=== PATIENT | male | born 1980 | race Caucasian/White ===

== ENCOUNTER 2019-02-27 13:27 | Emergency (ER) | payer MEDICAID, OTHER ==
[~2019-02-27] VITALS: Ht 180.3 cm; Wt 56.7 kg
[2019-02-27 13:35] VITALS: BP 127/82
[2019-03-02] MEDS ORDERED: LEVE500T53 PO (00:29)
[2019-03-02] MEDS ORDERED: ALPR2TAB2 PO (00:29)
[2019-03-02] MEDS ORDERED: GABA600T7 PO (00:29)
[2019-03-02] MEDS ORDERED: OXYC-432 PO (00:29)
== END 2019-02-27 14:20 | disposition home or self-care (01) ==
LOC: ED 14:10
DX: F41.9 Anxiety disorder, unspecified (principal); Z76.0 Encounter for issue of repeat prescription; F41.1 Generalized anxiety disorder; G40.909 Epilepsy, unspecified, not intractable, without status epilepticus; F43.10 Post-traumatic stress disorder, unspecified
CPT/HCPCS: 99283

== ENCOUNTER 2019-03-02 00:06 | Emergency (ER) | payer MEDICAID ==
[~2019-03-02] VITALS: Ht 180.3 cm; Wt 57.0 kg
[2019-03-02 00:14] VITALS: BP 133/88
== END 2019-03-02 01:32 | disposition home or self-care (01) ==
LOC: ED 00:53
DX: M25.462 Effusion, left knee (principal); G89.29 Other chronic pain; M54.5 Low back pain; M54.6 Pain in thoracic spine; F17.210 Nicotine dependence, cigarettes, uncomplicated; Z72.89 Other problems related to lifestyle; Z91.14 Patient's other noncompliance with medication regimen; Z75.9 Unspecified problem related to medical facilities and other health care
CPT/HCPCS: 99283

== ENCOUNTER 2019-03-30 16:17 | Emergency (ER) | payer MEDICAID ==
[~2019-03-30] VITALS: Ht 180.3 cm; Wt 58.2 kg
[2019-03-30 19:56] VITALS: BP 116/69
== END 2019-03-30 20:03 | disposition home or self-care (01) ==
LOC: ED 16:51
DX: L03.114 Cellulitis of left upper limb (principal); G40.909 Epilepsy, unspecified, not intractable, without status epilepticus; Z72.9 Problem related to lifestyle, unspecified; F43.10 Post-traumatic stress disorder, unspecified; T63.301A Toxic effect of unspecified spider venom, accidental (unintentional), initial encounter; Y92.89 Other specified places as the place of occurrence of the external cause
CPT/HCPCS: 10061; 71045; 96365; 96366; 99152; 99285; J0696; J3010; J7030; 10060

== ENCOUNTER 2019-06-20 17:02 | Emergency (ER) | payer MEDICARE, MEDICAID ==
[~2019-06-20] VITALS: Ht 177.8 cm; Wt 62.0 kg
[~2019-06-20 17:02] MED LIST: ALPR2TAB2 PO; GABA600T7 PO; LEVE500T53 PO; OXYC-432 PO
--- NOTE | 2019-06-20 18:21 | NUR ---
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
[2019-06-20] MEDS ORDERED: ONDANSETRON ODT 4 MG PO ONE (19:30)
[2019-06-20] MEDS ORDERED: HYDROmorphone 1 MG/ML, 1ML INJ IM ONE (19:30)
[2019-06-20] MEDS ORDERED: HYDROmorphone 1 MG/ML, 1ML VIAL ONE (19:39)
[2019-06-20] MEDS ORDERED: ONDANSETRON ODT 4 MG ONE (19:39)
[2019-06-20 20:01] LABS: ANION GAP 7 mmol/L (5-15); CALCIUM 8.5 mg/dL (8.5-10.1); CHLORIDE 104 mmol/L (98-107); CREATININE 0.84 mg/dL (0.7-1.3)
[2019-06-20 20:02] LABS: ALBUMIN 2.7 g/dL (3.4-5.0)
[2019-06-20 20:06] LABS: BASOPHILS % (AUTO) 1 % (0-1); EOSINOPHILS # (AUTO) 1.06 x10^3/uL (0-0.4); EOSINOPHILS % (AUTO) 7 % (1-7); LYMPHOCYTES # (AUTO) 4.64 x10^3/uL (1-3.4); LYMPHOCYTES % (AUTO) 31 % (22-44); MD NO; MEAN CORPUSCULAR HEMOGLOBIN 27.4 pg (27.5-34.5); MEAN CORPUSCULAR HGB CONC 31.6 g/dL (33.2-36.2); MEAN CORPUSCULAR VOLUME 86.9 fL (81-97); MEAN PLATELET VOLUME 8.2 fL (7.4-10.4); MONOCYTES # (AUTO) 1.05 x10^3/uL (0.2-0.8); MONOCYTES % (AUTO) 7 % (2-9); NEUTROPHILS # (AUTO) 7.99 x10^3/uL (1.8-6.8); NEUTROPHILS % (AUTO) 54 % (42-75); PLATELET COUNT 864 x10^3/uL (130-400); RED BLOOD COUNT 3.86 x10^6/uL (4.38-5.82); RED CELL DISTRIBUTION WIDTH 15.9 % (9.4-14.8)
--- NOTE | 2019-06-20 20:43 | NUR ---
SPOKE WITH PATIENT REGARDING FOLLOW UP AND SELF CARE AT HOME. GIVEN SUPPLIES FOR THREE DAYS OF CLEANING WOUNDS. PATIENT GIVEN FOOD AND WATER, PROVIDER APPROVED. PATIENT UPDATED ON PLAN OF CARE. NO NOTED ACUTE DISTRESS. PATIENT VERBALIZED UNDERSTANDING OF WOUND CARE AT HOME.
[2019-06-20 21:02] VITALS: BP 109/54
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
== END 2019-06-20 21:05 | disposition home or self-care (01) ==
LOC: ED 20:43
DX: L76.82 Other postprocedural complications of skin and subcutaneous tissue (principal); G89.29 Other chronic pain; M25.552 Pain in left hip; G40.909 Epilepsy, unspecified, not intractable, without status epilepticus; F41.1 Generalized anxiety disorder; F43.10 Post-traumatic stress disorder, unspecified; Z72.9 Problem related to lifestyle, unspecified; R00.0 Tachycardia, unspecified
CPT/HCPCS: 36415; 80048; 82040; 83605; 85025; 93005; 96372; 99284; J1170; Q0162

== ENCOUNTER 2019-07-16 12:08 | Emergency (ER) | payer MEDICARE, MEDICAID ==
[~2019-07-16] VITALS: Ht 177.8 cm; Wt 56.4 kg
[2019-07-16 12:35] VITALS: BP 138/70
[2019-07-16] MEDS ORDERED: DIAZEPAM 5 MG TABLET PO ONE (13:30)
[2019-07-16] MEDS ORDERED: VANCOMYCIN PER PHARMACY MC ONE (13:30)
[2019-07-16] MEDS ORDERED: HYDROmorphone 2 MG/ML, 1ML IVPush ONE (13:30)
[2019-07-16] MEDS ORDERED: SODIUM CHLORIDE FLUSH 10ML SYR IVF ONE (13:30)
[2019-07-16] MEDS ORDERED: VANCOMYCIN 1,100 MG in SODIUM CHLORIDE 0.9% 250 ML IV ONE (13:30)
[2019-07-16] MEDS ORDERED: DIAZEPAM 5 MG TABLET ONE (13:32)
[2019-07-16] MEDS ORDERED: HYDROmorphone 1 MG/ML, 1ML VIAL ONE (13:32)
[2019-07-16] MEDS ORDERED: LIDOCAINE-MPF 1%, 5ML ONE (14:28)
--- NOTE | 2019-07-16 14:30 | NUR ---
PROVIDER AT BEDSIDE PERFORMING I&D TO PRESUMED ABCESSES-PATIENT TOLERATED W/OUT DIFFICULTY
--- NOTE | 2019-07-16 15:27 | NUR ---
VANCOMYCIN COMPLETE. AMBULATORY W/OUT DIFFICULTY. WOUNDS DRESSED PROVIDED WITH TAXI VOUCHER/REVIEWED WOUND CARE ORDERS
== END 2019-07-16 15:30 | disposition home or self-care (01) ==
LOC: ED 15:10
DX: L02.414 Cutaneous abscess of left upper limb (principal); F41.1 Generalized anxiety disorder; R00.0 Tachycardia, unspecified; Q89.01 Asplenia (congenital); Z90.81 Acquired absence of spleen; Z88.6 Allergy status to analgesic agent; Z88.8 Allergy status to other drugs, medicaments and biological substances
CPT/HCPCS: 10060; 93005; 96365; 96375; 99283; J1170; J3370; J7050